=== PATIENT | male | born 1995 | race African-American/Black ===

== ENCOUNTER 2022-07-30 22:49 | Emergency (ER) | payer OTHER, SELFPAY ==
[2022-07-30 23:44] LABS: SARS-CoV-2 NAA Rapid Test Not Detected (NotDetected)
== END 2022-07-31 01:43 | disposition home or self-care (01) ==
LOC: ERS 22:49
DX: R19.7 Diarrhea, unspecified (principal); R11.2 Nausea with vomiting, unspecified; Z20.822 Contact with and (suspected) exposure to COVID-19
CPT/HCPCS: 87804; 99284; U0002